=== PATIENT | female | born 1965 | race Caucasian/White ===

== ENCOUNTER 2018-06-05 12:20 | Inpatient (IN) | payer SELFPAY ==
[~2018-06-05] VITALS: Ht 170.2 cm; Wt 73.5 kg
[2018-06-05] VITALS (31 sets, daily range): BP systolic 77–213; BP diastolic 22–84
[2018-06-05] MEDS: NALOXONE HCL 1 MG/ML 2ML VIAL IV ONE ×2 (12:23→12:28)
[2018-06-05] MEDS ORDERED: SUCCINYLCHOLINE CHLORIDE 200MG/10ML IV ONE (12:45)
[2018-06-05] MEDS ORDERED: LORAZEPAM 2MG/ML CPJ IV ONE (12:45)
[2018-06-05] MEDS ORDERED: ETOMIDATE 2MG/ML 10ML VIAL IV ONE (12:45)
[2018-06-05] MEDS ORDERED: SODIUM CHLORIDE 0.9% 1000ML BAG (SEPSIS BOLUS) IV ONE (12:45)
[2018-06-05] MEDS ORDERED: PROPOFOL 10MG/ML 100ML 100 ML IV ONE (12:45)
[2018-06-05] MEDS ORDERED: LORAZEPAM 2MG/ML CPJ ONE (12:46)
[2018-06-05 12:54] LABS: BASOPHILS % 0.5 % (0.0-2.0); EOSINOPHILS % 1.3 % (0.0-5.0); HEMATOCRIT. 45.4 % (36.0-48.0); HEMOGLOBIN. 14.7 g/dL (12.0-16.0); LYMPHOCYTES % 29.4 % (20.0-50.0); MEAN CORPUSCULAR HEMOGLOBIN 28.5 pg (28.0-32.0); MEAN CORPUSCULAR VOLUME 87.6 fL (81.0-99.0); MONOCYTES % 4.6 % (2.0-8.0); NEUTROPHILS % 64.2 % (40.0-76.0); PLATELET 327 x1000/uL (130-400); RED BLOOD CELL COUNT 5.18 mill/uL (4.2-5.4); RED CELL DISTRIBUTION WIDTH 13.6 % (11.6-14.6)
[2018-06-05 12:58] LABS: CLARITY URINE CLEAR (CLEAR); COLOR URINE YELLOW (YELLOW); KETONES URINE NEGATIVE (NEGATIVE); LEUKOCYTE ESTERASE URINE NEGATIVE (NEGATIVE); NITRITE URINE NEGATIVE (NEGATIVE); OCCULT BLOOD URINE NEGATIVE (NEGATIVE); PH URINE 6.5 (4.5-8.0); PROTEIN URINE TRACE (NEGATIVE); SPECIFIC GRAVITY URINE 1.019 (1.005-1.030)
[2018-06-05] MEDS ORDERED: NALOXONE 2 MG in SODIUM CHLORIDE 0.9% 250 ML IV NR (13:00)
[2018-06-05] MEDS ORDERED: NALOXONE HCL 1 MG/ML 2ML VIAL IV ONE (13:00)
[2018-06-05 13:03] LABS: CHLORIDE 104 mEq/L (98-107)
[2018-06-05 13:06] LABS: HCG SCREEN NEGATIVE
[2018-06-05 13:08] LABS: ETHANOL BLOOD < 10 mg/dL
[2018-06-05 13:10] LABS: PROTHROMBIN TIME 10.1 sec (9.6-11.0)
[2018-06-05 13:13] LABS: *BENZODIAZEPINES SCREEN URINE NEGATIVE (NEGATIVE); *COCAINE SCREEN URINE PRESUMTIVE POSITIVE (NEGATIVE); METHADONE URINE SCREEN NEGATIVE (NEGATIVE); OPIATES URINE SCREEN NEGATIVE (NEGATIVE)
[2018-06-05 13:14] LABS: *AMPHETAMINES SCREEN URINE NEGATIVE (NEGATIVE); *BARBITURATES SCREEN URINE NEGATIVE (NEGATIVE); CANNABINOID URINE SCREEN NEGATIVE (NEGATIVE); PHENCYCLIDINE URINE SCREEN PRESUMTIVE POSITIVE (NEGATIVE)
[2018-06-05 13:43] LABS: BG BASE EXCESS -5.5 mmol/L (-2.0-2.0); BG CARBOXYHEMOGLOBIN 3.2 % (0.5-1.5); BG DEOXYHEMOGLOBIN 0.6 % (0.0-5.0); BG FRACTION INSPIRED OXYGEN 100; BG HCO3 ACT 25.2 mmol/L (22.0-26.0); BG METHEMOGLOBIN 0.4 % (0.0-1.5); BG OXYGEN SATURATION 99.4 % (92.0-98.5); BG OXYHEMOGLOBIN 95.8 % (94.0-97.0); BG PCO2 76.6 mmHg (35.0-45.0); BG PH 7.135 (7.350-7.450); BG PO2 473.9 mmHg (75.0-100.0); BG SAMPLE SITE LEFT RADIAL; BG TIDAL VOLUME(mL) 550 mL; BG TOTAL HEMOGLOBIN 13.7 g/dL (12.0-18.0); BG VENT MODE VENT - A/C; BG VENT RATE 14 set
[2018-06-05] MEDS ORDERED: DEXTROSE 50% WATER 50ML SYRINGE IV PRN (13:45)
[2018-06-05] MEDS ORDERED: ACETAMINOPHEN 325MG TABLET PO PRN (13:45)
[2018-06-05] MEDS ORDERED: PIPERACILLIN/TAZ 3.375G PREMIX 50 ML IV ONE (13:45)
[2018-06-05] MEDS ORDERED: ONDANSETRON HCL 4MG/2ML INJ IV PRN (13:45)
[2018-06-05] MEDS ORDERED: NOREPINEPHRINE 4MG/250ML PMX 250 ML IV NR (13:59)
[2018-06-05] MEDS ORDERED: IPRATROPIUM/ALBUTEROL 0.5-3(2.5)MG/3ML NEB HHN PRN (14:00)
[2018-06-05] MEDS ORDERED: CEFEPIME 1,000 MG in DEXTROSE 5% WATER 50 ML IV SCH (14:15)
[2018-06-05] MEDS ORDERED: METRONIDAZOLE 500 MG PREMIX 100 ML IV SCH (14:23)
[2018-06-05] MEDS ORDERED: FENTANYL CITRATE/PF 500 MCG in SODIUM CHLORIDE 0.9% 40 ML IV PRN (17:00)
[2018-06-05] MEDS: INSULIN LISPRO 100 UNITS/ML SUBCUT SCH ×2 (17:00→21:00)
[2018-06-05] MEDS: METRONIDAZOLE 500 MG PREMIX 100 ML IV SCH (17:01)
[2018-06-05] MEDS: SODIUM CHLORIDE 0.9% 1,000 ML IV SCH (17:07)
[2018-06-05] MEDS: BLOOD SUGAR DIAGNOSTIC STRIP TEST SCH ×2 (17:17→21:42)
[2018-06-05] MEDS: IPRATROPIUM/ALBUTEROL 0.5-3(2.5)MG/3ML NEB HHN SCH (20:40)
[2018-06-05] MEDS ORDERED: MIDAZOLAM HCL 100 MG in DEXT 5% WATER 80 ML IV PRN (21:00)
[2018-06-05] MEDS: PROPOFOL 10MG/ML 100ML 100 ML IV PRN (22:03)
[2018-06-06] VITALS (97 sets, daily range): BP systolic 77–131; BP diastolic 43–72
[2018-06-06] MEDS: METRONIDAZOLE 500 MG PREMIX 100 ML IV SCH ×2 (00:01→08:52)
[2018-06-06] MEDS: IPRATROPIUM/ALBUTEROL 0.5-3(2.5)MG/3ML NEB HHN SCH ×4 (01:44→19:58)
[2018-06-06] MEDS: PROPOFOL 10MG/ML 100ML 100 ML IV PRN ×5 (02:21→23:08)
[2018-06-06] MEDS ORDERED: CEFEPIME 1,000 MG in DEXTROSE 5% WATER 50 ML IV SCH ×2 (03:00→11:00)
[2018-06-06] MEDS: SODIUM CHLORIDE 0.9% 1,000 ML IV SCH (03:05)
[2018-06-06 06:08] LABS: BASOPHILS % 0.3 % (0.0-2.0); EOSINOPHILS % 1.2 % (0.0-5.0); HEMOGLOBIN. 12.9 g/dL (12.0-16.0); LYMPHOCYTES % 25.4 % (20.0-50.0); MEAN CORPUSCULAR HEMOGLOBIN 28.6 pg (28.0-32.0); MEAN CORPUSCULAR VOLUME 86.6 fL (81.0-99.0); MEAN PLATELET VOLUME 9.1 fl (7.4-10.4); MONOCYTES % 7.5 % (2.0-8.0); NEUTROPHILS % 65.6 % (40.0-76.0); PLATELET 209 x1000/uL (130-400); RED BLOOD CELL COUNT 4.51 mill/uL (4.2-5.4); RED CELL DISTRIBUTION WIDTH 13.6 % (11.6-14.6)
[2018-06-06 06:18] LABS: CHLORIDE 112 mEq/L (98-107)
[2018-06-06] MEDS: BLOOD SUGAR DIAGNOSTIC STRIP TEST SCH (06:52)
[2018-06-06] MEDS: INSULIN LISPRO 100 UNITS/ML SUBCUT SCH (06:52)
[2018-06-06] MEDS: PANTOPRAZOLE SODIUM 40 MG/VIAL IV SCH (08:52)
[2018-06-06 09:00] LABS: BG BASE EXCESS -1.2 mmol/L (-2.0-2.0); BG CARBOXYHEMOGLOBIN 0.5 % (0.5-1.5); BG FRACTION INSPIRED OXYGEN 50; BG HCO3 ACT 25.5 mmol/L (22.0-26.0); BG METHEMOGLOBIN 0.3 % (0.0-1.5); BG OXYHEMOGLOBIN 95.2 % (94.0-97.0); BG PH 7.317 (7.350-7.450); BG PO2 89.6 mmHg (75.0-100.0); BG SAMPLE SITE RIGHT RADIAL; BG TIDAL VOLUME(mL) 550 mL; BG TOTAL HEMOGLOBIN 13.4 g/dL (12.0-18.0); BG VENT MODE VENT - A/C; BG VENT RATE 20 set
[2018-06-06] MEDS ORDERED: KCL 20MEQ/100ML PREMIX 100 ML IV NR (09:00)
[2018-06-06] MEDS: DEXT 5%/0.45% NACL 1000ML 1,000 ML IV SCH ×2 (09:15→22:18)
[2018-06-06] MEDS: BUDESONIDE 0.5MG/2ML NEB HHN SCH ×2 (11:45→19:59)
[2018-06-06] MEDS ORDERED: KCL 20MEQ/100ML PREMIX 100 ML IV SCH (12:00)
[2018-06-06] MEDS: DIPHENHYDRAMINE 50MG/ML VIAL IV PRN (13:29)
[2018-06-06] MEDS ORDERED: METRONIDAZOLE 500 MG PREMIX 100 ML IV SCH (18:00)
[2018-06-06] MEDS: RISPERIDONE 1MG TABLET PO SCH (22:20)
[2018-06-07] VITALS (97 sets, daily range): BP systolic 90–136; BP diastolic 36–88
[2018-06-07] MEDS: IPRATROPIUM/ALBUTEROL 0.5-3(2.5)MG/3ML NEB HHN SCH ×4 (01:30→21:56)
[2018-06-07] MEDS: PROPOFOL 10MG/ML 100ML 100 ML IV PRN ×2 (04:05→07:58)
[2018-06-07 05:13] LABS: BASOPHILS % 0.6 % (0.0-2.0); EOSINOPHILS % 1.7 % (0.0-5.0); HEMATOCRIT. 35.9 % (36.0-48.0); LYMPHOCYTES % 23.8 % (20.0-50.0); MEAN CORPUSCULAR HEMOGLOBIN 28.5 pg (28.0-32.0); MEAN CORPUSCULAR VOLUME 85.4 fL (81.0-99.0); MEAN PLATELET VOLUME 8.9 fl (7.4-10.4); MONOCYTES % 7.9 % (2.0-8.0); PLATELET 204 x1000/uL (130-400); RED BLOOD CELL COUNT 4.21 mill/uL (4.2-5.4); RED CELL DISTRIBUTION WIDTH 13.3 % (11.6-14.6)
[2018-06-07 05:26] LABS: CHLORIDE 114 mEq/L (98-107)
[2018-06-07 05:34] LABS: PHOSPHORUS 3.2 mg/dL (2.5-4.9)
[2018-06-07] MEDS ORDERED: KCL 20MEQ/100ML PREMIX 100 ML IV NR ×2 (07:00→12:00)
[2018-06-07] MEDS: BUDESONIDE 0.5MG/2ML NEB HHN SCH ×2 (07:39→21:56)
[2018-06-07] MEDS: RISPERIDONE 1MG TABLET PO SCH ×2 (08:03→20:40)
[2018-06-07] MEDS: PANTOPRAZOLE SODIUM 40 MG/VIAL IV SCH (08:03)
[2018-06-07] MEDS: DIPHENHYDRAMINE 50MG/ML VIAL IV PRN (08:03)
[2018-06-07] MEDS ORDERED: CEFTRIAXONE 2 G PREMIX 50 ML IV SCH ×2 (09:00→10:00)
[2018-06-07 09:51] LABS: BG BASE EXCESS 1.3 mmol/L (-2.0-2.0); BG CARBOXYHEMOGLOBIN 0.3 % (0.5-1.5); BG DEOXYHEMOGLOBIN 4.2 % (0.0-5.0); BG FRACTION INSPIRED OXYGEN 50; BG HCO3 ACT 25.1 mmol/L (22.0-26.0); BG METHEMOGLOBIN 0.4 % (0.0-1.5); BG OXYGEN SATURATION 95.8 % (92.0-98.5); BG OXYHEMOGLOBIN 95.1 % (94.0-97.0); BG PCO2 36.9 mmHg (35.0-45.0); BG PO2 78.6 mmHg (75.0-100.0); BG SAMPLE SITE RIGHT BRACHIAL; BG TIDAL VOLUME(mL) 550 mL; BG TOTAL HEMOGLOBIN 12.9 g/dL (12.0-18.0); BG VENT MODE VENT - A/C; BG VENT RATE 22 set
[2018-06-07] MEDS ORDERED: CEFTRIAXONE 2 G in DEXTROSE 5% WATER 50 ML IV SCH (10:30)
[2018-06-07] MEDS: METRONIDAZOLE 500 MG PREMIX 100 ML IV SCH ×2 (11:10→17:43)
[2018-06-07] MEDS: CEFEPIME 1,000 MG in DEXTROSE 5% WATER 50 ML IV SCH ×2 (11:12→23:51)
[2018-06-07] MEDS: DEXT 5%/0.45% NACL 1000ML 1,000 ML IV SCH (11:17)
[2018-06-07] MEDS ORDERED: POTASSIUM CHLORIDE 20MEQ/PACKET PO NR (16:00)
[2018-06-07] MEDS ORDERED: RISPERIDONE 1MG TABLET PO SCH (21:00)
[2018-06-08] VITALS (46 sets, daily range): BP systolic 91–133; BP diastolic 41–102
[2018-06-08] MEDS: DEXT 5%/0.45% NACL 1000ML 1,000 ML IV SCH ×2 (00:16→17:59)
[2018-06-08] MEDS: IPRATROPIUM/ALBUTEROL 0.5-3(2.5)MG/3ML NEB HHN SCH ×4 (03:02→21:53)
[2018-06-08] MEDS: METRONIDAZOLE 500 MG PREMIX 100 ML IV SCH ×3 (03:32→17:58)
[2018-06-08 05:13] LABS: BASOPHILS % 0.4 % (0.0-2.0); EOSINOPHILS % 2.6 % (0.0-5.0); HEMATOCRIT. 38.1 % (36.0-48.0); HEMOGLOBIN. 12.7 g/dL (12.0-16.0); MEAN CORPUSCULAR HEMOGLOBIN 28.5 pg (28.0-32.0); MEAN CORPUSCULAR VOLUME 85.5 fL (81.0-99.0); MEAN PLATELET VOLUME 8.9 fl (7.4-10.4); MONOCYTES % 8.6 % (2.0-8.0); NEUTROPHILS % 62.4 % (40.0-76.0); PLATELET 201 x1000/uL (130-400); RED BLOOD CELL COUNT 4.46 mill/uL (4.2-5.4); RED CELL DISTRIBUTION WIDTH 13.5 % (11.6-14.6)
[2018-06-08 05:47] LABS: CHLORIDE 107 mEq/L (98-107)
[2018-06-08] MEDS: BUDESONIDE 0.5MG/2ML NEB HHN SCH ×2 (08:01→21:54)
[2018-06-08] MEDS: PANTOPRAZOLE SODIUM 40 MG/VIAL IV SCH (08:25)
[2018-06-08] MEDS: DIPHENHYDRAMINE 50MG/ML VIAL IV PRN (08:25)
[2018-06-08] MEDS: RISPERIDONE 1MG TABLET PO SCH ×2 (08:26→21:35)
[2018-06-08] MEDS ORDERED: POTASSIUM CHLORIDE 20MEQ TABLET SR PO NR (09:30)
[2018-06-08] MEDS: CEFEPIME 1,000 MG in DEXTROSE 5% WATER 50 ML IV SCH ×2 (10:02→23:43)
[2018-06-09] VITALS (12 sets, daily range): BP systolic 98–128; BP diastolic 46–96
[2018-06-09] MEDS: IPRATROPIUM/ALBUTEROL 0.5-3(2.5)MG/3ML NEB HHN SCH ×4 (02:16→20:35)
[2018-06-09] MEDS: METRONIDAZOLE 500 MG PREMIX 100 ML IV SCH ×3 (03:46→18:04)
[2018-06-09 05:44] LABS: BASOPHILS % 0.6 % (0.0-2.0); EOSINOPHILS % 4.2 % (0.0-5.0); HEMATOCRIT. 39.3 % (36.0-48.0); LYMPHOCYTES % 24.1 % (20.0-50.0); MEAN CORPUSCULAR HEMOGLOBIN 28.2 pg (28.0-32.0); MEAN CORPUSCULAR VOLUME 85.1 fL (81.0-99.0); NEUTROPHILS % 63.1 % (40.0-76.0); PLATELET 228 x1000/uL (130-400); RED BLOOD CELL COUNT 4.62 mill/uL (4.2-5.4); RED CELL DISTRIBUTION WIDTH 13.1 % (11.6-14.6)
[2018-06-09 05:49] LABS: CHLORIDE 106 mEq/L (98-107)
[2018-06-09] MEDS: DEXT 5%/0.45% NACL 1000ML 1,000 ML IV SCH ×2 (06:30→21:57)
[2018-06-09] MEDS: BUDESONIDE 0.5MG/2ML NEB HHN SCH (07:47)
[2018-06-09] MEDS: RISPERIDONE 1MG TABLET PO SCH ×2 (08:25→20:28)
[2018-06-09] MEDS: PANTOPRAZOLE SODIUM 40 MG/VIAL IV SCH (08:25)
[2018-06-09] MEDS: CEFEPIME 1,000 MG in DEXTROSE 5% WATER 50 ML IV SCH ×2 (11:41→22:45)
[2018-06-10] VITALS (27 sets, daily range): BP systolic 88–133; BP diastolic 47–78
[2018-06-10] MEDS: IPRATROPIUM/ALBUTEROL 0.5-3(2.5)MG/3ML NEB HHN SCH ×4 (02:00→20:45)
[2018-06-10] MEDS: METRONIDAZOLE 500 MG PREMIX 100 ML IV SCH ×3 (02:21→17:08)
[2018-06-10] MEDS: RISPERIDONE 1MG TABLET PO SCH ×2 (09:01→20:40)
[2018-06-10] MEDS: PANTOPRAZOLE SODIUM 40 MG/VIAL IV SCH (09:01)
[2018-06-10] MEDS: CEFEPIME 1,000 MG in DEXTROSE 5% WATER 50 ML IV SCH (10:27)
[2018-06-11] VITALS (8 sets, daily range): BP systolic 108–120; BP diastolic 60–76
[2018-06-11] MEDS: CEFEPIME 1,000 MG in DEXTROSE 5% WATER 50 ML IV SCH ×3 (00:15→23:12)
[2018-06-11] MEDS: IPRATROPIUM/ALBUTEROL 0.5-3(2.5)MG/3ML NEB HHN SCH ×3 (00:20→20:32)
[2018-06-11] MEDS: METRONIDAZOLE 500 MG PREMIX 100 ML IV SCH ×2 (02:35→09:47)
[2018-06-11] MEDS: FAMOTIDINE 20MG TABLET PO SCH ×2 (09:30→17:06)
[2018-06-11] MEDS: RISPERIDONE 1MG TABLET PO SCH ×2 (09:30→20:59)
[2018-06-11] MEDS: METRONIDAZOLE 500MG TABLET PO SCH (17:06)
[2018-06-12] VITALS: BP 101/48
[2018-06-12] MEDS: IPRATROPIUM/ALBUTEROL 0.5-3(2.5)MG/3ML NEB HHN SCH ×2 (01:01→09:10)
[2018-06-12] MEDS: METRONIDAZOLE 500MG TABLET PO SCH ×2 (01:58→09:30)
[2018-06-12 04:00] VITALS: BP 135/69
[2018-06-12 08:00] VITALS: BP 101/61
[2018-06-12] MEDS: RISPERIDONE 1MG TABLET PO SCH (09:30)
[2018-06-12] MEDS: FAMOTIDINE 20MG TABLET PO SCH (09:30)
[2018-06-12 10:32] VITALS: BP 143/82
== END 2018-06-12 10:45 | disposition home or self-care (01) | DRG 720 ==
LOC: ER 12:20 → EDBEDREQ 13:37 → ENRESERV 14:12 → MICUSO 15:44 → 3WST 06-08 11:16 → 5WST 06-11 00:31
PROVIDERS: ADMIT Internal Medicine; ATTEND Internal Medicine
PROC: 5A1945Z Respiratory Ventilation, 24-96 Consecutive Hours (ICD-10-PCS; principal; 2018-06-05)
PROC: 0BH18EZ Insertion of Endotracheal Airway into Trachea, Via Natural or Artificial Opening Endoscopic (ICD-10-PCS; 2018-06-05)
DX: A41.9 Sepsis, unspecified organism (principal); J96.02 Acute respiratory failure with hypercapnia; J69.0 Pneumonitis due to inhalation of food and vomit; G93.41 Metabolic encephalopathy; E87.2 Acidosis; T50.901A Poisoning by unspecified drugs, medicaments and biological substances, accidental (unintentional), initial encounter; E44.1 Mild protein-calorie malnutrition; E87.6 Hypokalemia; F14.10 Cocaine abuse, uncomplicated; F19.129 Other psychoactive substance abuse with intoxication, unspecified; J68.0 Bronchitis and pneumonitis due to chemicals, gases, fumes and vapors; R73.9 Hyperglycemia, unspecified; Y92.89 Other specified places as the place of occurrence of the external cause; Z78.1 Physical restraint status; Z68.25 Body mass index [BMI] 25.0-25.9, adult
CPT/HCPCS: 31500; 36415; 36600; 71045; 80048; 80305; 80320; 82140; 82375; 82805; 82962; 83036; 83605; 83735; 83880; 84100; 84145; 84478; 84484; 84703; 86850; 86900; 87070; 92610; 93005; 93970; 94002; 94003; 94640; 97162; 97530; 99291; A6261; C9113; J0692; J0696; J1200; J2060; J2250; J2310; J2543; J2704; J3010; J3480; J3490; J7030; J7040; J7050; J7060; J7620; J7626; G0480